=== PATIENT | male | born 1995 | race Caucasian/White ===

== ENCOUNTER 2016-04-28 11:22 | Observation (INO) | payer OTHER ==
[2016-04-28] VITALS (7 sets, daily range): BP systolic 138–174; BP diastolic 73–96; PULSE 66–122; RESP 16–20; TEMP 97.8–98.1; O2SAT 96–100
[~2016-04-28] VITALS: Ht 180.3 cm; Wt 82.0 kg
[2016-04-28 11:55] LABS: AUTOMATED NEUTROPHIL # 7.5 TH/MM3 (1.8-7.7); BASOPHIL # 0.1 TH/MM3 (0-0.2); BASOPHIL % 0.7 % (0.0-2.0); EOSINOPHIL % 0.1 % (0.0-4.0); HEMATOCRIT 44.1 % (39.0-51.0); HEMO FLAGS DIFF FINAL; LYMPHOCYTE # 1.2 TH/MM3 (1.0-4.8); MEAN CELL VOLUME 87.4 FL (80.0-100.0); MEAN CORPUSCULAR HEMOGLOBIN 30.6 PG (27.0-34.0); MONO % 7.3 % (0.0-8.0); NEUT % 78.9 % (16.0-70.0); PLATELET COUNT 306 TH/MM3 (150-450); RED BLOOD COUNT 5.05 MIL/MM3 (4.50-5.90); RED CELL DISTRIBUTION WIDTH 12.6 % (11.6-17.2); WHITE BLOOD COUNT 9.4 TH/MM3 (4.0-11.0)
[2016-04-28 12:12] LABS: BICARBONATE 27.3 MEQ/L (21.0-32.0); POTASSIUM 3.7 MEQ/L (3.5-5.1)
[2016-04-28 12:28] LABS: CKMB 2.5 NG/ML (0.5-3.6)
--- NOTE | 2016-04-28 13:27 | PD ---
HPI Chief Complaint: Cardiac Complaint Time Seen by Provider: 13:17 Travel History International Travel<30 days: No Contact w/Intl Traveler<30days: No Traveled to known affect area: No History of Present Illness HPI 20-year-old male came to the emergency room with history of palpitations and not feeling well since last night. Patient says he started feeling like this since 8 PM. Since then he has been drinking Pedialyte but this morning he still did not feel better. He is here on spring and he was planning to head back home today but since he was not feeling well and decided to come to the emergency room. He is otherwise a healthy person. He says he drank a lot of beer yesterday between 19-20 and also did a lot of cocaine. He is on Adderall and took Adderall along with all this. He knows that the combination of all of these probably caused the palpitations. His heart rate this morning in triage was in the 100s. When I was in the room talking to him rate would go between 100s to 1 teens. No history of syncopal episode. No history of chest pain. Blood work was started in triage and by the time he came here they were back. His troponin was slightly elevated. [facility] Past Medical History Narrative Medical List of his past medical, surgical, social and family history is reviewed from the nursing note. Social History Alcohol Use: Yes Tobacco Use: Yes Substance Use: Yes Allergies-Medications (Allergen,Severity, Reaction): Coded Allergies: No Known Allergies (Unverified , 04/28/16) Comments No known drug allergies. Reported Meds & Prescriptions Reported Meds & Active Scripts Active No Active Prescriptions or Reported Medications Narrative Medication Waiting for the nurse to do finish the medical reconciliation. Patient told me he takes Adderall every day. Review of Systems Except as stated in HPI: all other systems reviewed are Neg Physical Exam Narrative GENERAL: Awake, alert, anxious, mild distress SKIN: Warm and dry. HEAD: Atraumatic. Normocephalic. EYES: Pupils equal and round. No scleral icterus. No injection or drainage. ENT: No nasal bleeding or discharge. Dry mucous membrane and coated tongue. NECK: Trachea midline. No JVD. CARDIOVASCULAR: Regular rate and rhythm. Tachycardia. No murmur appreciated. RESPIRATORY: No accessory muscle use. Clear to auscultation. Breath sounds equal bilaterally. GASTROINTESTINAL: Abdomen soft, non-tender, nondistended. Hepatic and splenic margins not palpable. MUSCULOSKELETAL: No obvious deformities. No clubbing. No cyanosis. No edema. NEUROLOGICAL: Awake and alert. No obvious cranial nerve deficits. Motor grossly within normal limits. Normal speech. PSYCHIATRIC: Appropriate mood and affect; insight and judgment normal. Data Data Last Documented VS Vital Signs Date Time Temp Pulse Resp B/P Pulse Ox O2 Delivery O2 Flow Rate FiO2 04/28/16 16:00 87 16 160/73 98 Room Air 04/28/16 11:24 97.8 Orders Electrocardiogram (04/28/16 11:29) Complete Blood Count With Diff (04/28/16 11:29) Basic Metabolic Panel (Bmp) (04/28/16 11:29) Ckmb (Isoenzyme) Profile (04/28/16 11:29) Troponin I (04/28/16 11:29) Chest, Single Ap (04/28/16 11:29) Iv Access Insert/Monitor (04/28/16 11:29) Ecg Monitoring (04/28/16 11:29) Oxygen Administration (04/28/16 11:29) Oximetry (04/28/16 11:29) CKMB (04/28/16 11:45) CKMB% (04/28/16 11:45) Drug Screen, Random Urine (04/28/16 13:18) Sodium Chlor 0.9% 1000 Ml Inj (Ns 1000 M (04/28/16 13:45) Lorazepam Inj (Ativan Inj) (04/28/16 13:45) Ct Pulmonary Angiogram (04/28/16 ) Troponin I (04/28/16 14:53) Heparin Infusion MELANY.Q1H (04/28/16 15:02) Heparin Inj (Heparin Inj) (04/28/16 15:15) Heparin-D5w Inj (Heparin-D5w Inj) (04/28/16 15:15) Act Partial Throm Time (Ptt) (04/28/16 15:02) Prothrombin Time / Inr (Pt) (04/28/16 15:02) Cbc No Diff, Includes Plts (04/28/16 15:02) Act Partial Throm Time (Ptt) (04/28/16 22:02) Iohexol 350 Inj (Omnipaque 350 Inj) (04/28/16 16:11) Sodium Chlor 0.9% 1000 Ml Inj (Ns 1000 M (04/28/16 16:30) Admit Order (Ed Use Only) (04/28/16 16:42) Labs Laboratory Tests Test 04/28/16 04/28/16 04/28/16 11:45 14:45 15:10 White Blood Count 9.4 TH/MM3 8.6 TH/MM3 Red Blood Count 5.05 MIL/MM3 4.85 MIL/MM3 Hemoglobin 15.4 GM/DL 14.9 GM/DL Hematocrit 44.1 % 42.6 % Mean Corpuscular Volume 87.4 FL 87.9 FL Mean Corpuscular Hemoglobin 30.6 PG 30.7 PG Mean Corpuscular Hemoglobin 35.0 % 34.9 % Concent Red Cell Distribution Width 12.6 % 12.6 % Platelet Count 306 TH/MM3 277 TH/MM3 Mean Platelet Volume 7.7 FL 8.0 FL Neutrophils (%) (Auto) 78.9 % Lymphocytes (%) (Auto) 13.0 % Monocytes (%) (Auto) 7.3 % Eosinophils (%) (Auto) 0.1 % Basophils (%) (Auto) 0.7 % Neutrophils # (Auto) 7.5 TH/MM3 Lymphocytes # (Auto) 1.2 TH/MM3 Monocytes # (Auto) 0.7 TH/MM3 Eosinophils # (Auto) 0.0 TH/MM3 Basophils # (Auto) 0.1 TH/MM3 CBC Comment DIFF FINAL Differential Comment Sodium Level 135 MEQ/L Potassium Level 3.7 MEQ/L Chloride Level 96 MEQ/L Carbon Dioxide Level 27.3 MEQ/L Anion Gap 12 MEQ/L Blood Urea Nitrogen 11 MG/DL Creatinine 1.44 MG/DL Estimat Glomerular Filtration 61 ML/MIN Rate Random Glucose 133 MG/DL Calcium Level 9.4 MG/DL Total Creatine Kinase 455 U/L Creatine Kinase MB 2.5 NG/ML Creatine Kinase MB % 0.5 % Troponin I 0.08 NG/ML 0.08 NG/ML Urine Opiates Screen NEG Urine Barbiturates Screen NEG Urine Amphetamines Screen NEG Urine Benzodiazepines Screen NEG Urine Cocaine Screen NEG Urine Cannabinoids Screen POS Prothrombin Time 11.3 SEC Prothromb Time International 1.0 RATIO Ratio Activated Partial 26.8 SEC Thromboplast Time MDM Medical Decision Making Medical Screen Exam Complete: Yes Emergency Medical Condition: Yes Medical Record Reviewed: Yes Interpretation(s) Twelve-lead EKG was reviewed by me. Normal sinus rhythm, sinus arrhythmia, normal axis, incomplete right bundle branch block. Heart rate of 89 bpm. Differential Diagnosis Polysubstance abuse related palpitation, ACS, PE Narrative Course 2:28 PM I gave the patient and liter of IV fluid bolus and 1 mg Ativan. In my opinion his symptoms are due to cocaine and Adderall together which act as stimulant and. Plus he also drank a lot of alcohol and probably did not drink fluid much. Which would explain his dehydration as well. The patient did drive to get here for his spring break. His 12-lead EKG incidentally shows S1 every 3 T3 finding. I will do a CT pulmonary angiogram just to rule out PE. 4:[address] pulmonary angiogram is within normal limits. His heart rate has come down to the 70s. He says he feels better. Patient has urinated some 3 or 4 times since he has come here. Urine drug screen was positive for marijuana only. There was a repeat troponin I had ordered which came back with the same elevated value. I explained to him that it would be better if he gets admitted for observation for some serial troponin. Patient is agreeable to that idea. Awaiting for the hospitalist to call back Procedures EKG Prior to Arrival: Yes Diagnosis Primary Impression: Palpitations Additional Impressions: Elevated troponin I level Substance abuse Admitting Information Admitting Physician Requests: Observation Scripts No Active Prescriptions or Reported Meds Javan Corona MD Apr 28, 2016 13:27
--- NOTE | 2016-04-28 13:31 | RADRPT ---
EXAM DATE/TIME: 04/28/2016 12:35 [facility] COMPARISON: No previous studies available for comparison. INDICATIONS : Elevated heart rate and palpitations. Tingling and numbness in hands. MEDICAL HISTORY : None. SURGICAL HISTORY : None. ENCOUNTER: Initial ACUITY: 1 day PAIN SCORE: 0/10 LOCATION: Bilateral chest FINDINGS: Portable AP view of the chest demonstrates a normal-sized cardiac silhouette. No effusion, consolidat ion, or pneumothorax is visualized. The bones and soft tissues demonstrate no acute abnormality. CONCLUSION: No acute cardiopulmonary abnormality is identified. Mikal Preston MD on April 28, 2016 at 13:29 Board Certified Radiologist. This report was verified electronically.
[2016-04-28] MEDS ORDERED: LORazepam 2 MG/ML VIAL IV PUSH ONE (13:45)
[2016-04-28] MEDS ORDERED: SODIUM CHLOR 0.9% 1000 ML INJ 1,000 ML IV ONE ×2 (13:45→16:30)
[2016-04-28 15:11] LABS: AMPHETAMINE, URINE NEG (NEG); BARBITURATES, URINE NEG (NEG); COCAINE, URINE NEG (NEG)
[2016-04-28] MEDS ORDERED: HEPARIN-D5W INJ 250 ML IV SCH (15:15)
[2016-04-28] MEDS ORDERED: HEPARIN SODIUM - IV 10,000 UNITS/10 ML VIAL IV ONE (15:15)
[2016-04-28 15:28] LABS: HEMATOCRIT 42.6 % (39.0-51.0); MEAN CELL VOLUME 87.9 FL (80.0-100.0); MEAN CORPUSCULAR HEMOGLOBIN 30.7 PG (27.0-34.0); MEAN CORPUSCULAR HGB CONC 34.9 % (32.0-36.0); PLATELET COUNT 277 TH/MM3 (150-450); RED BLOOD COUNT 4.85 MIL/MM3 (4.50-5.90); RED CELL DISTRIBUTION WIDTH 12.6 % (11.6-17.2); REVIEW FLAG FINAL; WHITE BLOOD COUNT 8.6 TH/MM3 (4.0-11.0)
[2016-04-28 15:43] LABS: APTT (PATIENT) 26.8 SEC (24.3-30.1); PROTHROMBIN TIME - PATIENT 11.3 SEC (9.8-11.6)
[2016-04-28] MEDS ORDERED: IOHEXOL 350 MG/ML 10 ML VIAL (for RAD DIAG) IV ONE (16:11)
--- NOTE | 2016-04-28 16:20 | RADRPT ---
EXAM DATE/TIME: 04/28/2016 15:15 [facility] COMPARISON: No previous studies available for comparison. INDICATIONS : Abnormal heart rate today. IV CONTRAST: 50 cc Omnipaque 350 (iohexol) IV RADIATION DOSE: 11.02 CTDIvol (mGy) MEDICAL HISTORY : None SURGICAL HISTORY : None. ENCOUNTER: Initial ACUITY: 1 day PAIN SCALE: 0/10 LOCATION: chest TECHNIQUE: Volumetric scanning of the chest was performed using a pulmonary embolism protocol MIP images were re constructed. Using automated exposure control and adjustment of the mA and/or kV according to patien t size, radiation dose was kept as low as reasonably achievable to obtain optimal diagnostic quality images. FINDINGS: PULMONARY ARTERIES: No filling defects are seen in the pulmonary arteries through the segmental level. LUNGS: There is no consolidation or pneumothorax . No concerning pulmonary nodule is visualized. PLEURAE: There is no pleural thickening or pleural effusion. MEDIASTINUM: There is good visualization of the great vessels of the middle mediastinum. No evidence of mediastin al or hilar adenopathy/mass. MUSCULOSKELETAL: Within normal limits for patient age. MISCELLANEOUS: The visualized upper abdominal organs demonstrate no acute abnormality. CONCLUSION: Normal examination for a patient of this age. Miguel Ángel Ashraf MD on April 28, 2016 at 16:16 Board Certified Radiologist. This report was verified electronically.
[2016-04-28] MEDS ORDERED: NALOXONE HCL 0.4 MG/ML AMP IV PRN (17:30)
[2016-04-28] MEDS ORDERED: SODIUM CHLORIDE 0.9% FLUSH 5 ML FLUSH FLUSH PRN (17:30)
[2016-04-28] MEDS ORDERED: ONDANSETRON HCL 4 MG/2 ML VIAL IVP PRN (17:30)
--- NOTE | 2016-04-28 17:51 | HHI.HP ---
[facility] Service [facility] Primary Care Physician No Primary Care Physician Admission Diagnosis palpitations, elevated troponin Diagnoses: Chief Complaint: Palpitations Travel History International Travel<30 Days: No Contact w/Intl Traveler <30 Da: No Traveled to Known Affected Are: No History of Present Illness 20-year-old male with no past medical history complaining of palpitations. Patient stated that he is here on vacation on spring from [place], [place] in which he was engaging in excessive alcohol intake in which he would not quantify , using cocaine, using marijuana and amphetamines. Patient stated that yesterday he started to have palpitations and felt that his heart was racing. He stated that this made him very anxious so he went to the emergency department. He denies any chest pain, shortness of breathing, Lightheadedness or dizziness. Patient also at that night any diaphoresis or nausea vomiting during these episodes. Patient was given a dose of Xanax him which his anxiety and heart rate improved. Otherwise at the moment patient is asymptomatic. Patient has no family history of heart disease. Patient also states that he smokes about half a pack per day. He would not state how long. Review of Systems Constitutional: DENIES: Diaphoretic episodes, Fatigue, Fever, Weight gain, Weight loss, Chills, Dizziness, Change in appetite, Night Sweats Endocrine: DENIES: Heat/cold intolerance, Polydipsia, Polyuria, Polyphagia Eyes: DENIES: Blurred vision, Diplopia, Eye inflammation, Eye pain, Vision loss , Photosensitivity, Double Vision Ears, nose, mouth, throat: DENIES: Tinnitus, Hearing loss, Vertigo, Nasal discharge, Oral lesions, Throat pain, Hoarseness, Ear Pain, Running Nose, Epistaxis, Sinus Pain, Toothache, Odynophagia Respiratory: DENIES: Apneas, Cough, Snoring, Wheezing, Hemoptysis, Sputum production, Shortness of breath Cardiovascular: COMPLAINS OF: Palpitations, DENIES: Chest pain, Syncope, Dyspnea on Exertion, PND, Lower Extremity Edema, Orthopnea, Claudication Gastrointestinal: DENIES: Abdominal pain, Black stools, Bloody stools, Constipation, Diarrhea, Nausea, Vomiting, Difficulty Swallowing, Anorexia Genitourinary: DENIES: Sexual dysfunction, Urinary frequency, Urinary incontinence, Urgency, Hematuria, Dysuria, Nocturia, Penile Discharge, Testicular Pain, Testicular Swelling Musculoskeletal: DENIES: Joint pain, Muscle aches, Stiffness, Joint Swelling, Back pain, Neck pain Integumentary: DENIES: Abnormal pigmentation, Nail changes, Pruritus, Rash Hematologic/lymphatic: DENIES: Bruising, Lymphadenopathy Immunologic/allergic: DENIES: Eczema, Urticaria Neurologic: DENIES: Abnormal gait, Headache, Localized weakness, Paresthesias, Seizures, Speech Problems, Tremor, Poor Balance Psychiatric: DENIES: Anxiety, Confusion, Mood changes, Depression, Hallucinations, Agitation, Suicidal Ideation, Homicidal Ideation, Delusions Past Family Social History Past Medical History Denied any past medical history. Past Surgical History Denied any PSHx Reported Medications Denied any medication use including OTC. Allergies: Coded Allergies: No Known Allergies (Unverified , 04/28/16) Active Ordered Medications Current Medications Sodium Chloride (NS 1000 ml Inj) 1,000 ml @ 999 mls/hr BOLUS ONCE IV Last administered on 04/28/16 14:01; Start 04/28/16 at 13:45; Stop 04/28/16 at 14:45; Status DC Lorazepam (Ativan Inj) 1 mg ONCE ONCE IV PUSH Last administered on 04/28/16 14 :01; Start 04/28/16 at 13:45; Stop 04/28/16 at 13:46; Status DC Heparin Sodium (Porcine) 4000 units 4,000 units ONCE ONCE IV Last administered on 04/28/16 15:17; Start 04/28/16 at 15:15; Stop 04/28/16 at 15:16; Status DC Heparin Sodium/ Dextrose (Heparin-D5W Inj) 250 ml @ 0 mls/hr TITRATE IV Last administered on 04/28/16 15:59; Start 04/28/16 at 15:15 Iohexol 50 ml 50 ml STK-MED ONCE IV Last administered on 04/28/16 16:11; Start 04/28/16 at 16:11; Stop 04/28/16 at 16:12; Status DC Sodium Chloride 1,000 ml @ 999 mls/hr BOLUS ONCE IV Last administered on 17:16; Start 04/28/16 at 16:30; Stop 04/28/16 at 17:30; Status DC Sodium Chloride (NS 1000 ml Inj) 1,000 ml @ 150 mls/hr Q6H40M IV ; Start at 17:30; Status UNV IV Flush (NS Flush) 2 ml UNSCH PRN FLUSH FLUSH AFTER USING IV ACCESS; Start 04/28/16 at 17:30; Status UNV IV Flush (NS Flush) 2 ml BID FLUSH ; Start 04/28/16 at 21:00; Status UNV Ondansetron HCl (Zofran Inj) 4 mg Q6H PRN IVP NAUSEA OR VOMITING; Start at 17:30; Status UNV Naloxone HCl (Narcan Inj) 0.4 mg UNSCH PRN IV SEE LABEL COMMENTS; Start at 17:30; Status UNV Family History No family hx of CVD, Dm or cancer. Social History Patient lives in [facility]. + 1/2 PPD. Positive alcohol use but would not say how much. Physical Exam Vital Signs Vital Signs Date Time Temp Pulse Resp B/P Pulse Ox O2 Delivery O2 Flow Rate FiO2 04/28/16 16:00 87 16 160/73 98 Room Air 04/28/16 14:59 71 16 160/73 96 Room Air 04/28/16 13:32 97 16 174/96 98 Room Air 04/28/16 11:24 97.8 122 20 167/95 100 Physical Exam GENERAL: This is a well-nourished, well-developed patient, in no apparent distress. SKIN: No rashes, ecchymoses or lesions. Cool and dry. HEAD: Atraumatic. Normocephalic. No temporal or scalp tenderness. EYES: Pupils equal round and reactive. Extraocular motions intact. No scleral icterus. No injection or drainage. ENT: Nose without bleeding, purulent drainage or septal hematoma. Throat without erythema, tonsillar hypertrophy or exudate. Uvula midline. Airway patent. NECK: Trachea midline. No JVD or lymphadenopathy. Supple, nontender, no meningeal signs. CARDIOVASCULAR: Regular rate and rhythm without murmurs, gallops, or rubs. RESPIRATORY: Clear to auscultation. Breath sounds equal bilaterally. No wheezes , rales, or rhonchi. GASTROINTESTINAL: Abdomen soft, non-tender, nondistended. No hepato-splenomegaly , or palpable masses. No guarding. MUSCULOSKELETAL: Extremities without clubbing, cyanosis, or edema. No joint tenderness, effusion, or edema noted. No calf tenderness. Negative Homans sign bilaterally. NEUROLOGICAL: Awake and alert. Cranial nerves II through XII intact. Motor and sensory grossly within normal limits. Five out of 5 muscle strength in all muscle groups. Normal speech. Laboratory Laboratory Tests Test 04/28/16 04/28/16 04/28/16 11:45 14:45 15:10 White Blood Count 9.4 8.6 Red Blood Count 5.05 4.85 Hemoglobin 15.4 14.9 Hematocrit 44.1 42.6 Mean Corpuscular Volume 87.4 87.9 Mean Corpuscular Hemoglobin 30.6 30.7 Mean Corpuscular Hemoglobin 35.0 34.9 Concent Red Cell Distribution Width 12.6 12.6 Platelet Count 306 277 Mean Platelet Volume 7.7 8.0 Neutrophils (%) (Auto) 78.9 Lymphocytes (%) (Auto) 13.0 Monocytes (%) (Auto) 7.3 Eosinophils (%) (Auto) 0.1 Basophils (%) (Auto) 0.7 Neutrophils # (Auto) 7.5 Lymphocytes # (Auto) 1.2 Monocytes # (Auto) 0.7 Eosinophils # (Auto) 0.0 Basophils # (Auto) 0.1 CBC Comment DIFF FINAL Differential Comment Sodium Level 135 Potassium Level 3.7 Chloride Level 96 Carbon Dioxide Level 27.3 Anion Gap 12 Blood Urea Nitrogen 11 Creatinine 1.44 Estimat Glomerular Filtration 61 Rate Random Glucose 133 Calcium Level 9.4 Total Creatine Kinase 455 Creatine Kinase MB 2.5 Creatine Kinase MB % 0.5 Troponin I 0.08 0.08 Urine Opiates Screen NEG Urine Barbiturates Screen NEG Urine Amphetamines Screen NEG Urine Benzodiazepines Screen NEG Urine Cocaine Screen NEG Urine Cannabinoids Screen POS Prothrombin Time 11.3 Prothromb Time International 1.0 Ratio Activated Partial 26.8 Thromboplast Time Result Diagram: 04/28/16 1510 04/28/16 1145 Imaging Last Impressions Chest X-Ray 04/28/16 1129 Signed Impressions: Service Date/Time: April 12:35 - CONCLUSION: No acute cardiopulmonary abnormality is identified. Mikal Preston MD CT Angiography 04/28/16 0000 Signed Impressions: Service Date/Time: April 15:15 - CONCLUSION: Normal examination for a patient of this age. Miguel Ángel Ashraf MD Assessment and Plan Assessment and Plan 20-year-old male with palpitations Palpitations -Most likely secondary to polysubstance use with multiple stimulant such as cocaine, Adderall combining with alcohol and marijuana. -Troponin is mildly elevated and that is most likely secondary to polysubstance abuse such as cocaine and Adderall. -We'll get another set of troponin and monitor over telemetry. -At the moment symptoms resolved with Xanax. Polysubstance abuse -Extensive education given on the use of any legal substance in which uses can result in . Renal insufficiency -Most likely secondary to dehydration due to polysubstance abuse. -Will give IVFs. -monitor Cr and I/O. DVT prophylaxis -low risk. Code Status full Discussed Condition With patient Peyton Addison MD Apr 28, 2016 17:51
[2016-04-28] MEDS: SODIUM CHLOR 0.9% 1000 ML INJ 1,000 ML IV SCH (18:18)
[2016-04-28] MEDS: SODIUM CHLORIDE 0.9% FLUSH 5 ML FLUSH FLUSH SCH (20:39)
[2016-04-28 22:16] LABS: APTT (PATIENT) 35.8 SEC (24.3-30.1)
[2016-04-29] MEDS: SODIUM CHLOR 0.9% 1000 ML INJ 1,000 ML IV SCH ×4 (00:40→09:53)
[2016-04-29 01:12] VITALS: BP 128/74; PULSE 84; RESP 18; TEMP 98.1; O2SAT 97
[2016-04-29 04:09] VITALS: BP 136/85; PULSE 88; RESP 18; TEMP 98.5; O2SAT 97
[2016-04-29 04:57] LABS: APTT (PATIENT) 37.8 SEC (24.3-30.1)
[2016-04-29 05:30] LABS: BICARBONATE 28.7 MEQ/L (21.0-32.0); POTASSIUM 3.6 MEQ/L (3.5-5.1)
[2016-04-29 08:00] VITALS: PULSE 58
[2016-04-29 08:04] VITALS: BP 143/99; PULSE 84; RESP 18; TEMP 98.3; O2SAT 99
[2016-04-29] MEDS: SODIUM CHLORIDE 0.9% FLUSH 5 ML FLUSH FLUSH SCH (09:00)
--- NOTE | 2016-04-29 10:25 | HHI.DS ---
Discharge Summary Admission Date Apr 28, 2016 at 16:44 Discharge Date: Apr 28, 2016 Admitting Diagnosis palpitations, elevated troponin (1) Substance abuse ICD Code: F19.10 Diagnosis: Principal (2) Palpitations ICD Code: R00.2 Diagnosis: Principal (3) Elevated troponin I level ICD Code: R74.8 Diagnosis: Principal Procedures none Brief History - From Admission 20-year-old male with no past medical history complaining of palpitations. Patient stated that he is here on vacation on spring from [place], [place] in which he was engaging in excessive alcohol intake in which he would not quantify , using cocaine, using marijuana and amphetamines. Patient stated that yesterday he started to have palpitations and felt that his heart was racing. He stated that this made him very anxious so he went to the emergency department. He denies any chest pain, shortness of breathing, Lightheadedness or dizziness. Patient also at that night any diaphoresis or nausea vomiting during these episodes. Patient was given a dose of Xanax him which his anxiety and heart rate improved. Otherwise at the moment patient is asymptomatic. Patient has no family history of heart disease. Patient also states that he smokes about half a pack per day. He would not state how long. CBC/BMP: 04/28/16 1510 04/29/16 0422 Significant Findings Laboratory Tests Test 04/28/16 04/28/16 04/28/16 04/28/16 11:45 14:45 15:10 21:45 Neutrophils (%) (Auto) 78.9 % (16.0-70.0) Sodium Level 135 MEQ/L (136-145) Chloride Level 96 MEQ/L (98-107) Creatinine 1.44 MG/DL (0.60-1.30) Estimat Glomerular Filtration 61 ML/MIN (>89) Rate Random Glucose 133 MG/DL (74-106) Total Creatine Kinase 455 U/L (39-308) Troponin I 0.08 NG/ML 0.08 NG/ML 0.11 NG/ML (0.02-0.05) (0.02-0.05) (0.02-0.05) Urine Cannabinoids Screen POS (NEG) Activated Partial 35.8 SEC Thromboplast Time (24.3-30.1) Test 04/29/16 04:22 Activated Partial 37.8 SEC Thromboplast Time (24.3-30.1) Estimat Glomerular Filtration 88 ML/MIN (>89) Rate Troponin I 0.10 NG/ML (0.02-0.05) Imaging Last Impressions Chest X-Ray 04/28/16 1129 Signed Impressions: Service Date/Time: April 12:35 - CONCLUSION: No acute cardiopulmonary abnormality is identified. Mikal Preston MD CT Angiography 04/28/16 0000 Signed Impressions: Service Date/Time: April 15:15 - CONCLUSION: Normal examination for a patient of this age. Miguel Ángel Ashraf MD Pt update on day of discharge patient had no complaints. He stated palpitation resolved since he was admitted. Denied any CP, SOB, or lightheadedness/dizziness. patient stated he is at his baseline and is ready to go. Hospital Course 20-year-old male with palpitations Palpitations -Most likely secondary to polysubstance use with multiple stimulant such as cocaine, Adderall combining with alcohol and marijuana. -Troponin is mildly elevated and that is most likely secondary to polysubstance abuse such as cocaine and Adderall causing mild ischemic demand. - troponins were stable and no events over telemetry. -symptoms resolved with a dose of xanax. -patient educated extensively on polysubstance abuse and use of Adderall on causing harmful effects on the heart that can lead to . Patient stated her understood and will never take recreational/illegal substance again. Polysubstance abuse -Extensive education given on the use of any legal substance in which uses can result in . Renal insufficiency -Most likely secondary to dehydration due to polysubstance abuse. - IVFs given with resolution. Pt Condition on Discharge: Good Discharge Disposition: Discharge Home Discharge Time: <= 30 minutes Discharge Instructions DIET: Follow Instructions for: As Tolerated, No Restrictions Activities you can perform: Regular-No Restrictions Follow up Referrals: PCP Follow-up - 1 Week Medication Profile: No Active Prescriptions or Reported Meds Peyton Addison MD Apr 29, 2016 10:25
--- NOTE | 2016-04-29 10:25 | HHI.DCPOC ---
Discharge Care Plan Diagnosis: (1) Elevated troponin I level (2) Substance abuse (3) Palpitations Goals to Promote Your Health * To prevent worsening of your condition and complications * To maintain your health at the optimal level Directions to Meet Your Goals Take your medications as prescribed Follow your dietary instruction Follow activity as directed Keep your appointments as scheduled Take your immunizations and boosters as scheduled If your symptoms worsen call your PCP, if no PCP go to Urgent Care Center or Emergency Room Smoking is Dangerous to Your Health. Avoid second hand smoke Call the 24-hour hour crisis hotline for domestic abuse at Peyton Addison MD Apr 29, 2016 10:25
--- NOTE | 2016-04-29 20:19 | EKG ---
Date Performed: 04/28/2016 Time Performed: 11:33:14 PTAGE: 20 years EKG: Sinus rhythm WITH OCCASIONAL SUPRAVENTRICULAR PREMATURE COMPLEXES INCOMPLETE RIGHT BUNDLE BRANCH BLOCK BORDERLINE ECG NO PREVIOUS TRACING DOCTOR: Sunil Watson Interpretating Date/Time 04/29/2016 20:17:47
== END 2016-04-29 11:51 | disposition home or self-care (01) ==
LOC: NEPC 11:22 → NEDA 16:44 → NEPGCP 20:49
PROVIDERS: ADMIT Family Medicine; ATTEND Family Medicine
DX: R00.2 Palpitations (principal); R74.8 Abnormal levels of other serum enzymes; F14.10 Cocaine abuse, uncomplicated; N28.9 Disorder of kidney and ureter, unspecified; F17.200 Nicotine dependence, unspecified, uncomplicated; F12.10 Cannabis abuse, uncomplicated
CPT/HCPCS: 71010; 71275; 80048; 80307; 82550; 82552; 84484; 85025; 85027; 85610; 85730; 93005; 96361; 96365; 96375; 96376; 99285; G0378; J1644; J2060; J7030; Q9967